=== PATIENT | male | born 2000 | race Caucasian/White ===

== ENCOUNTER 2024-04-05 11:32 | Emergency (ER) | payer OTHER, SELFPAY ==
[2024-04-05 11:35] VITALS: BP 139/76; PULSE 71; TEMP 37.1; O2SAT 99; BMI 33.0
--- NOTE | 2024-04-05 11:48 | ED_ITS ---
HPI - Eye Problem General Chief complaint: Eye Problems Stated complaint: EYE PAIN/SWELLING Time Seen by Provider: 04/05/24 11:41 Source: patient Mode of arrival: walk-in History of Present Illness HPI Narrative: The patient is coming to the ER with a left eye irritation that started almost 4 days ago, he mentioned that he was not doing anything specific but he was outside when he felt that something got into his his eyes. And since then his eyes has been watery and irritated and today he woke up to find some drainage and swelling of the eye, the patient mentioned that the blurry vision that he have is not continuous most of the time it will get better when he blinks or remove the secretion The patient did try flushing his eye at home but it did not help Related Data Previous Rx's ?Medication ?Instructions ?Recorded erythromycin 5 mg/gram (0.5 %) eye 0.5 inch ophthalmic (eye) Q2H #7 04/05/24 ointment grams Allergies Allergy/AdvReac Type Severity Reaction Status Date / Time No Known Drug Allergies Allergy Verified 04/05/24 11:39 Review of Systems ROS Status of ROS 10 or more systems reviewed and unremark able except as noted in history and below PFSH PFS Medical History (Updated 04/05/24 @ 12:30 by Giuliana Sims MD) No pertinent past medical history ?Z78.9 - Other specified health status (ICD-10) Surgical History (Updated 04/05/24 @ 11:58 by Vini Obregon) No pertinent past surgical history ?Z78.9 - Other specified health status (ICD-10) Social History Little interest or pleasure in doing things: not at all Feeling down, depressed, or hopeless: not at all Exam Narrative Exam Narrative: Nurses notes and vital signs reviewed and patient is not hypoxic. Eye exam: Right eye examination was benign left eye examination shows conjunctival erythema with an obvious 0.25 mm foreign body that can be seen in the right side of the cornea. No hyphema no hypopyon and the foreign body is sand-like General: Well-appearing and in no apparent distress. Skin: Warm, dry, no pallor noted. No rash. Head: Normocephalic, atraumatic. Neck: Supple, non-tender. Ears, Nose, Mouth, and Throat: TM are clear, no nasal mucosal hypertrophy. Oral mucosa is moist, no posterior oropharynx erythema, uvula is mid-line Cardiovascular: Regular Rate and Rhythm without murmur, gallop or rub. Respiratory: No accessory muscle use or respiratory distress. Lungs are clear to auscultation, no wheezing, rales or rhonchi Chest Wall: no tenderness Back: No midline thoracic or lumbar vertebral tenderness. No CVA tenderness Musculoskeletal: normal ROM, no calf or popliteal tenderness, no lower extremity edema/swelling GI: Abdomen is soft, non-distended. Normal bowel sounds. No masses appreciated. No tenderness to palpation. No rebound, guarding, or rigidity noted. Neurological: A&O x4. No cranial nerve dysfunction observed. No truncal ataxia. Moves all extremities. Sensation intact. Psychiatric: Cooperative and interactive. Normal mood and affect. Constitutional Vital Signs, click to edit/add: Last Vital Signs Temp 98.7 F 04/05/24 11:35 Pulse 71 04/05/24 11:35 Resp 16 04/05/24 11:35 BP 139/76 04/05/24 11:35 Pulse Ox 99 04/05/24 11:35 O2 Del Method Room Air 04/05/24 11:35 Course Vital Signs Vital signs: Vital Signs Temperature 98.7 F 04/05/24 11:35 Pulse Rate 71 04/05/24 11:35 Respiratory Rate 16 04/05/24 11:35 Blood Pressure 139/76 04/05/24 11:35 Pulse Oximetry 99 04/05/24 11:35 Oxygen Delivery Method Room Air 04/05/24 11:35 Temperature 98.7 F 04/05/24 11:35 Pulse Rate 71 04/05/24 11:35 Respiratory Rate 16 04/05/24 11:35 Blood Pressure 139/76 04/05/24 11:35 Pulse Oximetry 99 04/05/24 11:35 Oxygen Delivery Method Room Air 04/05/24 11:35 MDM - Eye Problem MDM Narrative Medical decision making narrative: After applying tetracaine and the fluorescein I was still able to evaluate the foreign body and it was not able to get rid of it by flushing the eye I did speak with Dr. Johnson and he recommended the patient to be started on erythromycin every 2 hours and follow-up with him Sunday The patient was instructed about the importance of follow-up on Sunday with Ophthalmology The patient is to follow up with primary care physician in next 2-3 days or to return to the emergency department should any of the signs or symptoms worsen or new symptoms develop. The patient agrees with the following Diagnosis and Treatment plan and the patient will be discharged home. Discharge Plan Discharge Chief Complaint: Eye Problems Clinical Impression: Corneal foreign body, Corneal abrasion Patient Disposition: Home, Self-Care Time of Disposition Decision: 12:30 Condition: Good Prescriptions / Home Meds: New erythromycin 5 mg/gram (0.5 %) ointment 0.5 inch ophthalmic (eye) Q2H Qty: 7 0RF Rx Instructions: please provide 2 tubes apply to the left eye q2 hrs Print Language: Filipino Instructions: Corneal Abrasion (DC), Eye Foreign Body (ED) Referrals: Dr Stone Johnson [Other] - As soon as possible (please follow up Sunday morning 8 am ) CECILE PATEL [Primary Care Provider] - 1 week Discharge Date/Time: 04/05/24 12:55
[2024-04-05] MEDS: TETRACAINE HCL 0.5% OP SOL 80 DROP/4 ML BOTTLE OP (11:54)
[2024-04-05] MEDS: FLUORESCEIN SODIUM 1 MG STRIP OP (11:54)
[2024-04-05] MEDS: ERYTHROMYCIN OP OINT 0.5% 1 GM TUBE OP (12:46)
== END 2024-04-05 12:55 | disposition home or self-care (01) ==
PROVIDERS: Emergency Provider Emergency Medicine; PCP Internal Medicine
DX: T15.02XA Foreign body in cornea, left eye, initial encounter (principal); W44.9XXA Unspecified foreign body entering into or through a natural orifice, initial encounter
CPT/HCPCS: 99283